=== PATIENT | male | born 1965 ===

== ENCOUNTER 2018-06-10 06:17 | Emergency (ER) | payer SELFPAY ==
[2018-06-10] MEDS ORDERED: Morphine VIAL* 4 MG/ML VIAL (1 ml vial) IV ONE ×2 (06:29→07:50)
[2018-06-10] MEDS ORDERED: Ondansetron INJ* 2 MG/ML VIAL IV ONE (06:29)
--- NOTE | 2018-06-10 06:37 | ED ---
Lower Extremity - HPI Summary HPI Summary: Pt. is a 52 y.o male who presents to the ER for a left ankle injury. Pt. states he went out to his truck this morning to get ready for work when he slipped stepping onto curb and invert left ankle. Pt. denies head injury or LOC. Past hx of HTN. Pt. denies numbness, tingling or weakness. Symptoms are mild in severity. Moving and touching left ankle makes sxs worse. Nothing makes sxs better. - History of Current Complaint Chief Complaint: EDExtremityLower Stated Complaint: L LEG INJURY Time Seen by Provider: 06/10/18 06:24 Hx Obtained From: Patient Pain Intensity: 5 - Allergies/Home Medications Allergies/Adverse Reactions: Allergies Allergy/AdvReac Type Severity Reaction Status Date / Time shellfish derived Allergy Airway Verified 06/10/18 07:04 Obstruction PMH/Surg Hx/FS Hx/Imm Hx Previously Healthy: Yes - Immunization History Date of Tetanus Vaccine: unsure Infectious Disease History: No Infectious Disease History: Denies: Traveled Outside the [place] in Last 30 Days - Family History Known Family History: Positive: Non-Contributory - Social History Occupation: Employed Full-time Lives: With Family Alcohol Use: Occasionally Substance Use Type: Reports: None Smoking Status (MU): Former Smoker Review of Systems Positive: Other - Left ankle injury Negative: Weakness, Paresthesia, Numbness All Other Systems Reviewed And Are Negative: Yes Physical Exam Triage Information Reviewed: Yes Vital Signs On Initial Exam: Initial Vitals Temp Pulse Resp BP Pulse Ox 97.3 F 74 18 132/98 99 06/10/18 06:20 06/10/18 06:20 06/10/18 06:20 06/10/18 06:20 06/10/18 06:20 Vital Signs Reviewed: Yes Appearance: Positive: Well-Appearing - Pt. lying on bed in NAD. Splint on left ankle. present. Skin: Positive: Warm, Dry Head/Face: Positive: Normal Head/Face Inspection Eyes: Positive: Normal, EOMI Neck: Positive: Supple Musculoskeletal: Positive: Other - Mild edema and ecchymosis to left lateral ankle. Good pedal pulse. No breaks in skin. No proximal knee or hip pain. Neurological: Positive: Normal, CN Intact II-III Psychiatric: Positive: Affect/Mood Appropriate - Lizette Coma Scale Best Eye Response: 4 - Spontaneous Best Motor Response: 6 - Obeys Commands Best Verbal Response: 5 - Oriented Coma Scale Total: 15 Diagnostics - Vital Signs Vital Signs Temp Pulse Resp BP Pulse Ox 06/10/18 06:20 97.3 F 74 18 132/98 99 - Laboratory Lab Statement: Any lab studies that have been ordered have been reviewed, and results considered in the medical decision making process. Lower Extremity Course/Dx - Course Course Of Treatment: Pt. presenting for likely left ankle fracture/dislocation. IV and morphine ordered. Pending xrays. X-rays show a distal comminuted fibular fracture as well as displacement of the ankle mortise, reading per myself and Dr. Jacome. Case discussed with Dr. Jacome. Ankle was splinted and crutched. Patient to call orthopedic clinic today to schedule close follow-up appointment. Advised patient he'll most likely need surgery for this injury. Prescription for Percocet prescribed for pain. FUR STRETCHER was reviewed and no red flags identified. Advised ice and elevate. Keep splint in place and use crutches. Advised to return to the ER for excessive swelling, numbness, tingling, discoloration. Patient and significant other understand and agree with plan. - Diagnoses Differential Diagnosis/HQI/PQRI: Positive: Contusion, Dislocation, Fracture ( Closed), Sprain, Strain Provider Diagnoses: Fracture dislocation of ankle Discharge - Sign-Out/Discharge Documenting (check all that apply): Patient Departure - Discharge Plan Condition: Good Disposition: HOME Prescriptions: oxyCODONE/Acetamin 5/325 MG* [Percocet 5/325 TAB*] 1 tab PO Q6H PRN #12 tab MDD 4 tablets PRN Reason: Pain Patient Education Materials: Ankle Fracture (ED), Ankle Dislocation (ED) Referrals: Mary Kate Almendarez MD [Medical Doctor] - Additional Instructions: Call the Dr. Almendarez's office this morning to schedule a close follow up appointment Keep splint in place Use crutches Ice and elevate Pain medication as directed Return to ER for increased pain, swelling, tingling/numbness, or discoloration to foot - Billing Disposition and Condition Condition: GOOD Disposition: Home
[2018-06-10 08:31] VITALS: BP 151/98
--- NOTE | 2018-06-11 13:49 | ED ---
Progress - Progress Note Progress Note: Patient's final radiology read reported as minor discrepancy however radiology report matches description of wet read by Kenneth STRICKLAND and Dr. Jacome (see note). Patient was splinted and placed on crutches. No change in treatment nor diagnosis. Patient was advised to follow-up with orthopedics which is an appropriate care plan given final radiology read. Course/Dx - Course Course Of Treatment: Pt. presenting for likely left ankle fracture/dislocation. IV and morphine ordered. Pending xrays. X-rays show a distal comminuted fibular fracture as well as displacement of the ankle mortise, reading per myself and Dr. Jacome. Case discussed with Dr. Jacome. Ankle was splinted and crutched. Patient to call orthopedic clinic today to schedule close follow-up appointment. Advised patient he'll most likely need surgery for this injury. Prescription for Percocet prescribed for pain. CUT TOBACCO BULKER was reviewed and no red flags identified. Advised ice and elevate. Keep splint in place and use crutches. Advised to return to the ER for excessive swelling, numbness, tingling, discoloration. Patient and significant other understand and agree with plan. - Diagnoses Provider Diagnoses: Fracture dislocation of ankle Discharge - Sign-Out/Discharge Documenting (check all that apply): Post-Discharge Follow Up - Discharge Plan Condition: Good Disposition: HOME Prescriptions: oxyCODONE/Acetamin 5/325 MG* [Percocet 5/325 TAB*] 1 tab PO Q6H PRN #12 tab MDD 4 tablets PRN Reason: Pain Patient Education Materials: Ankle Fracture (ED), Ankle Dislocation (ED) Referrals: Mary Kate Almendarez MD [Medical Doctor] - Additional Instructions: Call the Dr. Almendarez's office this morning to schedule a close follow up appointment Keep splint in place Use crutches Ice and elevate Pain medication as directed Return to ER for increased pain, swelling, tingling/numbness, or discoloration to foot - Billing Disposition and Condition Condition: GOOD Disposition: Home
== END 2018-06-10 08:29 | disposition home or self-care (01) ==
LOC: ED 06:17
DX: S82.892A Other fracture of left lower leg, initial encounter for closed fracture (principal); X58.XXXA Exposure to other specified factors, initial encounter; Y92.9 Unspecified place or not applicable; Z87.891 Personal history of nicotine dependence
CPT/HCPCS: 96374; 96375; 99283; J2270; J2405

== ENCOUNTER 2019-03-07 09:22 | Emergency (ER) | payer OTHER ==
--- OUTSIDE RECORDS SUMMARY | 2019-03-07 09:27 | XMS REPORT | Summary of Care ---
:1965 Author Organization [facility] Address [address] [address] Care Team Providers Name Role Phone Tavares Chavez DO Primary Care Provider Reason for Visit Reason Comments Follow Up here for follow up; concerned with BP and check; Encounter Details Date Type Department Care Team Description 01/19/2019 Office Visit [facility] Tavares Chavez DO Essential hypertension Practice [address] [facility] (Primary Dx) [address] [place] [address] [place] [address] [phone] Allergies Active Allergy Reactions Severity Noted Date Comments Environmental Respiratory Reaction 11/08/2017 Shellfish Allergy Anaphylaxis 11/08/2017 documented as of this encounter (statuses as of 01/19/2019) Medications Medication Sig Dispensed Refills Start Date End Date Status Albuterol Sulfate Take 2 Puffs by 1 Each 0 11/14/2018 Active 108 (90 Base) inhalation EVERY MCG/ACT FOUR HOURS Inhalation NEEDED (cough, AEROSOL POWDER, wheeze or BREATH ACTIVATED shortness of breath). LISINOPRIL-HCTZ Take 1 Tab by 30 Tab 0 01/12/2019 Active 10-12.5 MG Oral mouth DAILY. TabIndications: Hypertension, unspecified type ibuprofen Take 1 Tab by 120 Tab 4 06/24/2018 01/19/2019 Discontinued (MOTRIN) 800 MG mouth EVERY SIX Oral Tab HOURS NEEDED (pain). documented as of this encounter (statuses as of 01/19/2019) Active Problems Problem Noted Date Closed fracture of left ankle 2018 documented as of this encounter (statuses as of 01/19/2019) Immunizations Name Administration Dates Next Due TDAP Vaccine 11/14/2018 documented as of this encounter Social History Tobacco Use Types Packs/Day Years Used Date Never Smoker Smokeless Tobacco: Never Used Alcohol Use Drinks/Week oz/Week Comments Yes 1 Cans of beer 1.0 2 beers a night Sex Assigned at Date Recorded Not on file Job Start Date Occupation Industry Not on file Not on file Not on file Travel History Travel Start Travel End No recent travel history available. documented as of this encounter Last Filed Vital Signs Vital Sign Reading Time Taken Comments Blood Pressure 148/78 01/19/2019 3:03 PM EDT Pulse 86 01/19/2019 3:03 PM EDT Temperature - - Respiratory Rate - - Oxygen Saturation 98% 01/19/2019 3:03 PM EDT Inhaled Oxygen Concentration - - Weight 144.8 kg (319 lb 3.2 oz) 01/19/2019 3:03 PM EDT Height 188 cm (6' 2") 01/19/2019 3:03 PM EDT Body Mass Index 40.98 01/19/2019 3:03 PM EDT documented in this encounter Progress Notes Tavares Chavez, DO - 01/19/2019 3:00 PM EDT PATIENT: Sunny Liriano : 1965 DATE OF SERVICE: 01/19/2019 CHIEF COMPLAINT: Chief Complaint Patient presents with Follow Up here for follow up; concerned with BP and check; Subjective HISTORY OF PRESENT ILLNESS: Sunny Liriano is a 53-y.o. male. 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 Cast Hypertension Family History Problem Relation Age of Onset Hypertension Mother Diabetes Father Cancer No family history Arthritis No family history Heart Disease No family history Kidney Disease No family history Thyroid Disease No family history Clotting Disorder No family history Current Outpatient Medications Medication Sig Albuterol Sulfate 108 (90 Base) MCG/ACT Inhalation AEROSOL POWDER, BREATH ACTIVATED Take 2 Puffs by inhalation EVERY FOUR HOURS NEEDED (cough, wheeze or shortness of breath). ibuprofen (MOTRIN) 800 MG Oral Tab Take 1 Tab by mouth EVERY SIX HOURS NEEDED (pain). LISINOPRIL-HCTZ 10-12.5 MG Oral Tab Take 1 Tab by mouth DAILY. No current facility-administered medications for this visit. Allergies Allergen Reactions Environmental Respiratory Reaction Shellfish Allergy Anaphylaxis Social History Socioeconomic History Marital status: Single Spouse name: Not on file Number of children: Not on file Years of education: Not on file Highest education level: Not on file Occupational History Not on file Social Needs Financial resource strain: Not on file Food insecurity: Worry: Not on file Inability: Not on file Transportation needs: Medical: Not on file Non-medical: Not on file Tobacco Use Smoking status: Never Smoker Smokeless tobacco: Never Used Substance and Sexual Activity Alcohol use: Yes Alcohol/week: 1.0 standard drinks Types: 1 Cans of beer per week Comment: 2 beers a night Drug use: No Sexual activity: Yes Partners: Female control/protection: Surgical Lifestyle Physical activity: Days per week: Not on file Minutes per session: Not on file Stress: Not on file Relationships Social connections: Talks on phone: Not on file Gets together: Not on file Attends tenriism service: Not on file Active member of club or organization: Not on file Attends meetings of clubs or organizations: Not on file Relationship status: Not on file Intimate partner violence: Fear of current or ex partner: Not on file Emotionally abused: Not on file Physically abused: Not on file Forced sexual activity: Not on file Other Topics Concern Not on file Social History Narrative 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 REVIEW OF SYSTEMS: Review of Systems Constitutional: Negative for fever. Respiratory: Negative for cough. Gastrointestinal: Negative for abdominal pain. Neurological: Negative for dizziness. Objective PHYSICAL EXAM: VITALS: BP 148/78 (BP Location: Left arm, Patient Position: Sitting) | Pulse 86 | Ht 6' 2" (1.88 m) | Wt 319 lb 3.2 oz (144.8 kg) | SpO2 98% | BMI 40.98 kg/m Body mass index is 40.98 kg/m. Physical Exam Constitutional: He appears well-developed and well-nourished. No distress. HENT: Head: Normocephalic and atraumatic. Mouth/Throat: Oropharynx is clear and moist. Cardiovascular: Normal rate and regular rhythm. Pulmonary/Chest: Effort normal and breath sounds normal. Skin: He is not diaphoretic. ASSESSMENT / IMPRESSION: ICD-9-CM ICD-10-CM 1. 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 The patient will establish with Payal Hanna in 6 months. Author: Tavares Chavez DO 01/19/2019 15:25 documented in this encounter Plan of Treatment Date Type Specialty Care Team Description 02/03/2019 Nurse/Clinical Internal Medicine Support 02/03/2019 Lab Internal Medicine 02/19/2019 Hospital Encounter Anesthesiology Mitesh Cast Short Procedure MD Jacki [address] [place] [place] [address] 02/19/2019 Surgery Mitesh Cast REMOVAL OF HARDWARE MD Jacki FROM LEFT ANKLE [address] [place] [address] 03/03/2019 Office Visit Orthopedics Mitesh Cast MD [address] [place] [address] Health Maintenance Due Date Last Done Comments ZOSTER IMMUNIZATION SERIES (1 2016 of 2) LIPID DISORDER SCREENING 11/29/2018 11/29/2017 INFLUENZA VACCINE (#1) 2019 DIABETES SCREENING 06/12/2019 06/12/2018, 12/27/2017, 11/29/2017 COLONOSCOPY SCREENING 11/15/2019 Postponed from 2016 (Patient refused) DEPRESSION SCREENING 11/15/2019 11/14/2018 HIV SCREENING 01/20/2020 Postponed from 1981 (Patient refused) HPV IMMUNIZATION SERIES Aged Out No longer eligible based on patient's age to complete this topic MENINGOCOCCAL VACCINE IMM Aged Out No longer eligible based on patient's age to complete this topic PNEUMOCOCCAL 0-64 YRS Aged Out No longer eligible based on patient's age to complete this topic documented as of this encounter Goals Goal Patient Goal Associated Recent Patient-Stated? Author Type Problems Progress Blood Pressure Blood Pressure 148/78 No Tavares Chavez < 140/90 (01/19/2019 DO Danae 3:03 PM EDT) Note: This is an individualized treatment (blood pressure) goal for Sunny Liriano: Displayed above (on the left) is your goal for blood pressure control. Your most recent blood pressure is also shown above, on the right. You should try to achieve blood pressures that are lower than your goal listed above (on the left). Weight loss vs. 18 mo Lifestyle 2.4 (01/19/2019 3:03 PM EDT) Tavares De DO max (lbs) >= 10 Note: This is an individualized lifestyle goal for Sunny Liriano: Your body mass index (BMI) is more than 30. You should lose weight. A reasonable starting goal is to lose 10 pounds. Displayed above is how many pounds you have lost thus far towards your 10 pound weight loss goal. Take all prescribed medications as directed Self-management Tavares De DO Note: This is an individualized self-management goal for Sunny Liriano: Please take all prescribed medications as directed. 1. Do not skip doses. If you cannot afford your medications, talk with your doctor. 2. Use a pill reminder system such as a pill box if needed. Your pharmacist can help you with this. 3. Contact your Pharmacy 5 days before your medication runs out. If you cannot take your medications for any reasons, talk with your doctor. 4. Please bring all of your medication bottles and inhalers (or a list of all your medications/inhalers) with you to every visit. Potential barriers to meeting all of your care plan goals will continue to be addressed on an ongoing basis. documented as of this encounter Implants Implanted Type Area Children'S Nursery Assistant Device Shelf Model / Identifier Expiration Serial / Date Lot Plate, 241.401 p 06/[address] - [id number] Left: [employer] 241.401 / Implanted: Qty: 1 on 06/16/2018 by Mitesh Cast MD at [facility] ([facility]) / [id number] [facility] Ankle - [id number] Left: [employer] 02/17/2023 [id number] / Implanted: Qty: 1 on 06/16/2018 by Mitesh Cast MD at [facility] Ankle / [id number] Screw, 204.818 Ss 3.5 Self-Tap - [id number] Left: [employer] 204.818 / Implanted: Qty: 1 on 06/16/2018 by Mitesh Cast MD at [facility] ([facility]) / Screw, 204.818 Ss 3.5 Self-Tap - [id number] Left: [employer] 204.818 / Implanted: Qty: 1 on 06/16/2018 by Mitesh Cast MD at [facility] ([facility]) / Screw, 204.818 Ss 3.5 Self-Tap - [id number] Left: [employer] 204.818 / Implanted: Qty: 1 on 06/16/2018 by Mitesh Cast MD at [facility] ([facility]) / 3.5mm Variable Angle Locking Screw/Slf-Tpng/Strdrv/65mm - [id number] Left: [employer] 02127.165 / Implanted: Qty: 1 on 06/16/2018 by Mitesh Cast MD at [facility] ([facility]) / 3.5mm Va Locking Screw St Stardrive 54mm - [id number] Left: [employer]. 02127.154 / Implanted: Qty: 1 on 06/16/2018 by Mitesh Cast MD at [facility] ([facility]) / 3.5mm Va Locking Screw St Stardrive 56mm - [id number] Left: [employer] 127.156 / Implanted: Qty: 1 on 06/16/2018 by Mitesh Cast MD at [facility] ([facility]) / documented as of this encounter Results Not on filedocumented in this encounter Visit Diagnoses Diagnosis Essential hypertension - Primary Unspecified essential hypertension documented in this encounter documented as of this encounter
--- OUTSIDE RECORDS SUMMARY | 2019-03-07 09:27 | XMS REPORT | Summary of Care ---
:1965 Author Organization [facility] Address [address] [facility] [place] [address] Care Team Providers Name Role Phone Misael Chavezed Danae Primary Care Provider Reason for Visit Reason Comments Surgical Followup 06/16/18 ORIF left ankle fracture. 02/19/19 MISSY left ankle including broken screw. Patient thinks he has increased ROM since MISSY. Suture / Staple Removal Encounter Details Date Type Department Care Team Description 03/03/2019 Office Visit [facility] - Mitesh Cast Closed fracture of Vicente Echeverria MD left ankle with [address] [facility] routine healing, [address] [place] [address] [place] [address] (Primary Dx) [phone] Allergies Active Allergy Reactions Severity Noted Date Comments Environmental Respiratory Reaction 11/08/2017 Shellfish Allergy Anaphylaxis 11/08/2017 documented as of this encounter (statuses as of 03/03/2019) Medications Medication Sig Dispensed Refills Start Date End Date Status Albuterol Sulfate 108 Take 2 Puffs by 1 Each 0 11/14/2018 Active (90 Base) MCG/ACT inhalation EVERY Inhalation AEROSOL FOUR HOURS POWDER, BREATH NEEDED (cough, ACTIVATED wheeze or shortness of breath). LISINOPRIL-HCTZ Take 1 Tab by mouth 30 Tab 0 01/12/2019 Active 10-12.5 MG Oral DAILY. TabIndications: Hypertension, unspecified type amLodipine (NORVASC) Take 1 Tab by mouth 90 Tab 1 02/03/2019 Active 2.5 MG Oral Tab DAILY. OXYcodone-acetaminoph Take 1 Tab by mouth 28 Tab 0 02/19/2019 Active en (PERCOCET) 5-325 EVERY FOUR HOURS MG Oral Tab NEEDED (pain). Max Daily Amount: 6 Tabs. documented as of this encounter (statuses as of 03/03/2019) Active Problems Problem Noted Date Closed fracture of left ankle 2018 documented as of this encounter (statuses as of 03/03/2019) Immunizations Name Administration Dates Next Due TDAP [...] Sign Reading Time Taken Comments Blood Pressure - - Pulse - - Temperature - - Respiratory Rate - - Oxygen Saturation - - Inhaled Oxygen Concentration - - Weight 143.8 kg (317 lb) 03/03/2019 9:10 AM EDT Height 188 cm (6' 2") 03/03/2019 9:10 AM EDT Body Mass Index 40.7 03/03/2019 9:10 AM EDT documented in this encounter Progress Notes Mitesh Cast MD - 03/03/2019 9:00 AM EDT PATIENT: Sunny Liriano : 1965 DATE OF SERVICE: 03/03/2019 Chief Complaint Patient presents with Surgical Followup 06/16/18 ORIF left ankle fracture. 02/19/19 MISSY left ankle including broken screw. Patient thinks hehas increased ROM since MISSY. Suture / Staple Removal Doing well Incisions healing well, no sign of infection. Sutures removed and steris applied. Anle well-aligned,stable, good ROM and gait with and without cane, I reviewed xrays of Left ankle: good reduction maintained, HARDWARE out (except suture buttons) and fibular fracture well-aligned and healing. Cane 2 more weeks, no impact loading. Follow-up visit 04/21 with with same xray views as today. Author: Mitesh Cast MD 03/03/2019 10:05 documented in this encounter Plan of Treatment Date Type Specialty Care Team Description 04/21/2019 Office Visit Orthopedics Mitesh Cast MD [address] [place] [address] [phone] 07/23/2019 Office Visit Family Practice Payal Pacheco, JOSE [address] [id number] [phone] Health Maintenance Due Date Last Done Comments ZOSTER IMMUNIZATION SERIES 2016 (1 of 2) INFLUENZA VACCINE (#1) 2019 COLONOSCOPY SCREENING 11/15/2019 Postponed from 2016 (Patient refused) DEPRESSION SCREENING 11/15/2019 11/14/2018 HIV SCREENING 01/20/2020 Postponed from 1981 (Patient refused) DIABETES SCREENING 02/04/2020 02/03/2019, 06/12/2018, 12/27/2017, Additional history exists LIPID DISORDER SCREENING 02/04/2020 02/03/2019, 11/29/2017 HPV IMMUNIZATION SERIES Aged Out No longer [...] Type Problems Progress Blood Pressure Blood Pressure 119/74 No Tavares Chavez < 140/90 (02/19/2019 J, DO 6:35 PM EDT) Note: This is an individualized treatment (blood pressure) goal for Sunny Liriano: Displayed above (on the left) is your goal for blood pressure control. Your most recent blood pressure is also shown above, on the right. You should try to achieve blood pressures that are lower than your goal listed above (on the left). Weight loss vs. 18 mo Lifestyle 4.6 (03/03/2019 9:10 AM EDT) No Tavares Chavez J, DO max (lbs) >= 10 Note: This is an individualized lifestyle goal for Sunny Liriano: Your body mass index (BMI) is more than 30. You should lose weight. A reasonable starting goal is to lose 10 pounds. Displayed above is how many pounds you have lost thus far towards your 10 pound weight loss goal. Take all prescribed medications as directed Self-management No Tavares Chavez, DO Note: This is an individualized self-management [...] of this encounter Implants Implanted Type Area Meter Supervisor Device Shelf Model / Identifier Expiration Date Serial / Lot [employer] Ankle - [id number] Left: [employer] 02/17/2023 [id number] / Implanted: Qty: 1 on 06/16/2018 by Mitesh Cast MD at [facility] Ankle / [id number] documented as of this encounter Results Not on filedocumented in this encounter Visit Diagnoses Diagnosis Closed fracture of left ankle with routine healing, subsequent encounter - Primary documented in this encounter documented as of this encounter
--- OUTSIDE RECORDS SUMMARY | 2019-03-07 09:27 | XMS REPORT | Summary of Care ---
:1965 Author Organization [facility] Address [address] [address] Care Team Providers Name Role Phone Tavares Chavez Primary Care Provider Reason for Visit Auth/Cert Status Reason Specialty Diagnoses / Procedures Referred By Contact Referred To Contact Diagnoses Other fracture of left lower leg, subsequent encounter for closed fracture with routine healing Procedures PA KNEE SCOPE,MED/LAT MENISECTOMY PA KNEE SCOPE,MED OR LAT MENIS REPAIR Encounter Details Date Type Department Care Team Description 02/19/2019 Hospital Encounter [facility] Momo Kennedy Short Procedure [address] [place] [address] [address] [phone] [address] [address] Allergies Active Allergy Reactions Severity Noted Date Comments Environmental Respiratory Reaction 11/08/2017 Shellfish Allergy Anaphylaxis 11/08/2017 documented as of this encounter (statuses as of 02/20/2019) Medications Medication Sig Dispensed Refills Start Date End Date Status Albuterol Take 2 Puffs by 1 Each 0 11/14/2018 Active Sulfate 108 (90 inhalation Base) MCG/ACT EVERY FOUR Inhalation HOURS NEEDED AEROSOL POWDER, (cough, wheeze BREATH ACTIVATED or shortness of breath). LISINOPRIL-HCTZ Take 1 Tab by 30 Tab 0 01/12/2019 Active 10-12.5 MG Oral mouth DAILY. TabIndications: Hypertension, unspecified type amLodipine Take 1 Tab by 90 Tab 1 02/03/2019 Active (NORVASC) 2.5 MG mouth DAILY. Oral Tab OXYcodone-acetam Take 1 Tab by 28 Tab 0 02/19/2019 Active inophen mouth EVERY (PERCOCET) 5-325 FOUR HOURS MG Oral Tab NEEDED (pain). Max Daily Amount: 6 Tabs. OXYcodone-acetam Take 1 Tab by 28 Tab 0 02/19/2019 Discontinued inophen mouth EVERY 9 (Reorder) (PERCOCET) 5-325 FOUR HOURS MG Oral Tab NEEDED (pain). Max Daily Amount: 6 Tabs. documented as of this encounter (statuses as of 02/20/2019) Active Problems Problem Noted Date Closed fracture of left ankle 2018 documented as of this encounter (statuses as of 02/20/2019) Immunizations Name Administration Dates Next Due TDAP [...] Sign Reading Time Taken Comments Blood Pressure 119/74 02/19/2019 6:35 PM EDT Pulse 100 02/19/2019 6:35 PM EDT Temperature 37.2 02/19/2019 6:35 PM EDT C (98.9 F) Respiratory Rate 18 02/19/2019 6:35 PM EDT Oxygen Saturation 99% 02/19/2019 6:35 PM EDT Inhaled Oxygen Concentration - - Weight 144 kg (317 lb 6.4 oz) 02/19/2019 1:07 PM EDT Height 188 cm (6' 2") 02/19/2019 1:07 PM EDT Body Mass Index 40.75 02/19/2019 1:07 PM EDT documented in this encounter Discharge Instructions Connie Lopez RN - 02/19/2019Provider's Instructions Reason for Admission or Diagnosis: retained hardware to left ankle Procedures this Admission: removal of hardware to left ankle Activity/Restrictions: weight bearing as tolerated with walker or crutches in 5 days Skin/Wound Care: Keep dressing clean, dry, and intact for next 5 days then may remove and bathe. Donot remove dressing. Any questions or concerns please call MOMO KENNEDY MD ,MD office at [phone]. Discharge Diet: Resume prior to admission diet Follow up: 2-3 weeks with MOMO KENNEDY MD ,MD in [place] Discharge Provider: SOHA Iqbal Attending: OMMO KENNEDY MD, MD Time: 17:07 02/19/2019 Nurse's Instructions Problems to report to your Physician: Excessive pain or discomfort Fever > 100.5 degrees Difficulty breathing Increase or smell in wound drainage Questions or concerns after discharge During office hours call Surgeons office For after office hours or weekends call [facility] Work[facility] and ask for Orthopedic surgeon industrial relations worker *Please Return Patient Satisfaction Survey* AttachmentsThe following attachments cannot be sent through Care Everywhere.GENERAL ANESTHESIA (DISCHARGE CARE) (KHMER)documented in this encounter Plan of Treatment Date Type Specialty Care Team Description 03/03/2019 Office Visit Orthopedics Momo Kennedy MD [address] [address] [phone] 07/23/2019 Office Visit Family Practice Payal Pacheco NP [address] [place] [address] [phone] Health Maintenance Due Date Last Done Comments [...] 119/74 No Tavares Chavez < 140/90 (02/19/2019 DO Danae 6:35 PM EDT) Note: This is an individualized treatment (blood pressure) goal for Sunny Liriano: Displayed above (on the left) is your goal for blood pressure control. Your most recent blood pressure is also shown above, on the right. You should try to achieve blood pressures that are lower than your goal listed above (on the left). Weight loss vs. 18 mo Lifestyle 4.2 (02/19/2019 1:07 PM EDT) No Tavares Chavez DO max (lbs) >= 10 Note: This [...] of this encounter Implants Implanted Type Area Soundscriber Mechanic Device Shelf Model / Identifier Expiration Date Serial / [facility] [id number] Left: [employer] 02/17/2023 [id number] / Implanted: Qty: 1 on 06/16/2018 by Momo Kennedy MD at [facility] Ankle / [id number] Explanted Type Area Soundscriber Mechanic Device Shelf Model / Identifier Expiration Serial / Date Lot Plate, 241.401 Lcp 06/05 Tub [facility] - [id number] Left: [employer] 241.401 / Implanted: Qty: 1 on 06/16/2018 by Momo Kennedy MD at [facility] Ankle ([place]) / Explanted: Qty: 1 on 02/19/2019 by Momo Kennedy MD at [facility] [id number] Screw, 204.818 Ss 3.5 Self-Tap - [id number] Left: [employer] 204.818 / Implanted: Qty: 1 on 06/16/2018 by Momo Kennedy MD at [facility] Ankle ([facility]) / Explanted: Qty: 1 on 02/19/2019 by Momo Kennedy MD at [facility] Screw, 204.818 Ss 3.5 Self-Tap - [id number] Left: [employer] 204.818 / Implanted: Qty: 1 on 06/16/2018 by Momo Kennedy MD at [facility] Ankle ([facility]) / Explanted: Qty: 1 on 02/19/2019 by Momo Kennedy MD at [facility] Screw, 204.818 Ss 3.5 Self-Tap - [id number] Left: [employer] 204.818 / Implanted: Qty: 1 on 06/16/2018 by Momo Kennedy MD at [facility] Ankle ([facility]) / Explanted: Qty: 1 on 02/19/2019 by Momo Kennedy MD at [facility] 3.5mm Variable Angle Locking Screw/Slf-Tpng/Strdrv/65mm - [id number] Left: [employer] 127.165 / Implanted: Qty: 1 on 06/16/2018 by Momo Kennedy MD at [facility] Ankle ([facility]) / Explanted: Qty: 1 on 02/19/2019 by Momo Kennedy MD at [facility] 3.5mm Va Locking Screw St [employer]rive 54mm - [id number] Left: [employer] 127.154 / Implanted: Qty: 1 on 06/16/2018 by Momo Kennedy MD at [facility] Ankle ([facility]) / Explanted: Qty: 1 on 02/19/2019 by Momo Kennedy MD at [facility] 3.5mm Va Locking Screw St [employer]ard[employer] 56mm - [id number] Left: [employer] 02.127.156 / Implanted: Qty: 1 on 06/16/2018 by Momo Kennedy MD at [facility] Ankle ([place]) / Explanted: Qty: 1 on 02/19/2019 by Momo Kennedy MD at [facility] documented as of this encounter Procedures Procedure Name Priority Date/Time Associated Comments Diagnosis XR ANKLE 2 VIEWS Routine 02/19/2019 5:37 Results for this LEFT PM EDT procedure are in the results section. 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 BROKEN SCREW REMOVAL KIT. SMOOTH STEINMANN PINS. RED DOT C-ARM. SKYTRON 3003 IMPULSE RADIOLUCENT. SUPINE. SIGN PERMIT 02/19/2019 12:00 PM EDT documented in this encounter Results XR ANKLE 2 VIEWS LEFT (02/19/2019 5:37 PM EDT) Specimen Impressions Performed At General supervision is provided in support of furnishing fluoroscopic imaging guidance to the clinical service in support of an interventional procedure. Please reference the operating provider's procedure note. Signed by Alexandre Ortega MD on 02/19/2019 8:42 PM Narrative Performed At Procedure(s): XR ANKLE 2 VIEWS LEFT Date of service: 02/19/2019 2:23 PM Provided clinical information: 53 years, Male, "Removal of Hardware Left Ankle" Procedure Note Interface, Rad Results - 02/19/2019 8:46 PM EDT Procedure(s): XR ANKLE 2 VIEWS LEFT Date of service: 02/19/2019 2:23 PM Provided clinical information: 53 years, Male, "Removal of Hardware Left Ankle" IMPRESSION General supervision is provided in support of furnishing fluoroscopic imaging guidance to the clinical service in support of an interventional procedure. Please reference the operating provider's procedure note. Signed by Alexandre Ortega MD on 02/19/2019 8:42 PM documented in this encounter Administered Medications Medication Order MAR Action Action Date Dose Rate Site FentaNYL (PF) (SUBLIMAZE) injection (PF) 25 mcg 25 mcg, Intravenous Push, PRU Q5MIN PRN, Starting [facility] 02/19/19 at 1656, Until [facility] 02/19/19 at 2054, Mild Pain (pain scale 1-3) - IV - 1st line - if immediate effect required or patient cannot tolerate PO, 4 Recovery FentaNYL (PF) (SUBLIMAZE) injection (PF) 50 mcg 50 mcg, Intravenous Push, PRU Q5MIN PRN, Starting [facility] 02/19/19 at 1656, Until [facility] 02/19/19 at 2110, Moderate Pain (pain scale 4-6) - IV - 1st line - if immediate effect required or patient cannot tolerate PO, Severe Pain (pain scale 7-10) - IV - 1st line - if immediate effect required or patient cannot tolerate PO, 4 Recovery haloperidol (HALDOL) injection 0.65 mg 0.65 mg, Intravenous Push, PRU X1 PRN, 1 dose, Starting [facility] 02/19/19 at 165, Until [facility] 02/19/19 at 2110, Nausea/Vomiting - IV - 3rd line - if immediate effect required or patient cannot tolerate PO and no relief 1 hour after administration of 2nd line agent, 4 Recovery HYDROmorphone (DILAUDID) syringe 0.3 mg 0.3 mg, Intravenous Push, PRU Q5MIN PRN, Starting [facility] 02/19/19 at 1656, Until [facility] 02/19/19 at 2054, Mild Pain (pain scale 1-3) IV - 2nd line - if immediate effect required or cannot tolerate PO & still had mild pain 4 hrs after admin of 1st line agent or patient did not tolerate 1st line agent, 4 Recovery HYDROmorphone (DILAUDID) syringe 0.5 mg Given 02/19/2019 5:03 PM EDT 0.5 mg 0.5 mg, Intravenous Push, PRU Q5MIN PRN, 2 doses, Starting [facility] 02/19/19 at 1656, Until [facility] 02/19/19 at 2110, Moderate Pain (pain scale 4-6)IV 2nd line- if immediate effect required or cannot tolerate PO & still had moderate pain 2 hrs after admin of 1st line agent or did not tolerate 1st line agent, Severe Pain (pain scale 7-10)IV 2nd line - if immediate effect required or cannot tolerate PO & no still has severe pain 1 hr after admin of 1st line agent or did not tolerate 1st line agent, 4 Recovery meperidine (DEMEROL) syringe 25 mg 25 mg, Intravenous Push, PRU Q5MIN PRN, 2 doses, Starting [facility] 02/19/19 at 1656, Until [facility] 02/19/19 at 2111, Shivering/Chills/Rigors, 4 Recovery midazolam (VERSED) injection 0.5 mg 0.5 mg, Intravenous Push, PRU Q5MIN PRN, Starting [facility] 02/19/19 at 1656, Until [facility] 02/19/19 at 2055, Anxiety - IV - 1st line - if immediate effect required or patient cannot tolerate PO, 4 Recovery normal saline IV Intravenous, at 100 mL/hr, PRU CONTINUOUS, Starting [facility] 02/19/19 at 1700, Until [facility] 02/19/19 at 211, 4 Recovery ondansetron (ZOFRAN) injection 4 mg 4 mg, Intravenous Push, PRU X1 PRN, 1 dose, Starting [facility] 02/19/19 at 1656, Until [facility] 02/19/19 at 2111, Nausea/Vomiting - IV - 1st line - If immediate effect required or patient cannot tolerate PO, 4 Recovery OXYcodone (OXY-IR,OXY-FAST) immediate release Given 02/19/2019 5:41 PM EDT 10 mg tablet 10 mg 10 mg, Oral, X1 BEFORE DISCHARGE, 1 dose, First dose on [facility] 02/19/19 at 1700, 4 Recovery prochlorperazine (COMPAZINE) injection 2.5 mg 2.5 mg, Intravenous Push, PRU PRN, 2 doses, Starting [facility] 02/19/19 at 1656, Until [facility] 02/19/19 at 2110, Nausea/Vomiting - IV - 2nd line - if immediate effect required or patient cannot tolerate PO and no relief 1 hours after administration of 1st line agent, 4 Recovery documented in this encounter documented as of this encounter
[2019-03-07 09:33] VITALS: BP 129/83
--- NOTE | 2019-03-07 09:50 | UC ---
Lower Extremity/Ankle HPI - HPI Summary HPI Summary: CHIEF COMPLAINT and HPI: This is a 53-year-old male sustained a serious injury to his left leg in June 2018. various hardware was placed to repair this injury. 4 days ago, the left leg incision had sutures removed. Since that time , the patient complains of a foul smell to this incision site and an opening of the incision. He denies fever or other signs or symptoms consistent with a cellulitis. Description of Pain:a stinging pain Location:, left lower extremity above the ankle, lateral aspect. approximately 8 cm incision Radiation:. No radiation of pain VITAL SIGNS & SaO2 REVIEWED. Within normal limits unless noted here. 129/83;. Patient is on lisinopril. NURSES NOTE REVIEWED. "left lower leg fracture -had surgery- hardware removed recently , stiches removed this past Saturday by dr west possible infection of wound" - History of Current Complaint Chief Complaint: UCWounds Stated Complaint: WOUND INFECTION Time Seen by Provider: 03/07/19 09:35 Hx Obtained From: Patient Pain Intensity: 5 - Allergies/Home Medications Allergies/Adverse Reactions: Allergies Allergy/AdvReac Type Severity Reaction Status Date / Time shellfish derived Allergy Airway Verified 03/07/19 09:33 Obstruction Home Medications: Home Medications Lisinopril/Hydrochlorothiazide [Lisinopril-Hctz 10-12.5 mg Tab] 1 each PO DAILY WITH MEAL 03/07/19 [History Confirmed 03/07/19] PMH/Surg Hx/FS Hx/Imm Hx - Additional Past Medical History Additional PMH: PAST MEDICAL HISTORY- CHRONIC and RECURRENT HEALTH PROBLEM LIST REVIEWED. Information relevant to present complaint: noncontributory VISIT HISTORY REVIEWED: MEDICATIONS & ALLERGIES REVIEWED.. No antibiotic allergies HYPERTENSION STATUS:. History of hypertension. Patient is taking lisinopril. 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 Previously Healthy: Yes - Surgical History Surgical History: Yes Surgery Procedure, Year, and Place: left leg - Family History Known Family History: Positive: Non-Contributory - Social History Alcohol Use: Daily Substance Use Type: None Smoking Status (MU): Never Smoked Tobacco Review of Systems All Other Systems Reviewed And Are Negative: Yes Respiratory: Positive: Negative Cardiovascular: Positive: Negative Gastrointestinal: Positive: Negative Genitourinary: Positive: Negative Musculoskeletal: Positive: Edema - . Left lower extremity Physical Exam - Summary Physical Exam Summary: Appearance: The patient is well-appearing, is in no pain or distress, and is well-nourished. Eyes: Conjunctiva are clear. Pupils are equal and reactive to light and accommodation. Extra ocular muscle movement is intact. ENT: The hearing is grossly normal, the pharynx is normal, and the TMs are normal. There is no muffled or hoarse voice. No stridor. Neck: The neck is supple and there is no lymphadenopathy. Respiratory: The chest is non-tender to palpation and without crepitus. The lungs are clear, there are normal breath sounds, and there is no respiratory distress. No wheezes, rales or rhonchi. Cardiovascular: Heart sounds reveal a regular rate and rhythm. There are no clicks, rubs or murmurs. There are no carotid bruits or thrills. Circulation is grossly intact. Abdomen: The abdomen is soft and nontender. There is no organomegaly. Bowel sounds are present and within normal limits. No point tenderness at McBurneys point. No CVA tenderness. Musculoskeletal: Strength is intact. The patient moves all extremities. Examination of the left lower extremity: The area of the left ankle is mildly swollen. There is a macerated area on the lateral aspect surrounding a 8 cm incision site. The skin around the incision site is mildly macerated. 6 cm of the wound distally is open approximately 0.75 cm. There is no surrounding erythema or evidence of cellulitis. Neurological: The patient is alert. Motor and sensory are examination grossly intact. Speech is normal. Psychological: The patient displays age appropriate behavior, and is conversant. GCS=15. Skin: Negative for rashes. Triage Information Reviewed: Yes Vital Signs: Initial Vital Signs Temp 98.1 F 03/07/19 09:28 Pulse 78 03/07/19 09:28 Resp 18 03/07/19 09:28 BP 129/83 03/07/19 09:28 Pulse Ox 100 03/07/19 09:28 Lower Extremity Course/Dx - Course Course Of Treatment: This is a 53-year-old male sustained a serious injury to his left leg in June 2018. various hardware was placed to repair this injury. 4 days ago, the left leg incision had sutures removed. Since that time, the patient complains of a foul smell to this incision site and an opening of the incision. He denies fever or other signs or symptoms consistent with a cellulitis. Examination of the left lower extremity: The area of the left ankle is swollen. There is a macerated area on the lateral aspect surrounding a 8 cm incision site. The skin around the incision site is mildly macerated. 6 cm of the wound. Distally is open approximately 0.75 cm. There is no surrounding erythema or evidence of cellulitis. I explained to the patient that the area did not appear to be infected, but that the wound was open. He understands to expose this area of macerated skin to the air and to use antibiotic ointment on the wound. He will keep it exposed to the air except when he is traveling about at which point he will cover the area with gauze and an Osiel wrap. I explained that it may take a number of weeks for this to fully heal and that as prophylaxis, he will be on 5 days of Keflex. the patient will clean the wound morning and night and noticed recheck if there is any sign of infection. - Differential Dx/Diagnosis Differential Diagnosis/HQI/PQRI: Cellulitis, Osteomyelitis Provider Diagnosis: Wound dehiscence Discharge ED - Sign-Out/Discharge Documenting (check all that apply): Patient Departure All imaging exams completed and their final reports reviewed: No Studies - Discharge Plan Condition: Stable Disposition: HOME Prescriptions: Cephalexin CAP* [Keflex 500 CAP*] 500 mg PO TID #15 cap MDD 3 Patient Education Materials: Cellulitis (DC) Referrals: No Primary Care Phys,NOPCP [Primary Care Provider] - Additional Instructions: WE DISCUSSED: PLEASE SEEK CARE AT THE EMERGENCY DEPARTMENT IF SYMPTOMS WORSEN OR IF NEW SYMPTOMS DEVELOP. FOLLOW UP WITH YOUR PRIMARY CARE PHYSICIAN IF CONDITION CONTINUES BEYOND 3 DAYS WITHOUT IMPROVEMENT. YOUR DIAGNOSIS IS: open wound from previous operation; sensitive skin around the wound. You do NOT have a skin infection at this time. YOUR PRESCRIPTION RECOMMENDATION IS: Keflex, 3 times a day for 5 days OTHER INSTRUCTIONS: Warm moist heat; clean morning and night; use antibiotic ointment; expose to air; recheck at any time for increased pain, redness or new drainage. Hypertension Discharge Instructions: Your blood pressure reading today was 129/83 , indicating HYPERTENSION. You are taking medication for this. Follow-up with your primary care provider within 4 weeks for blood pressure check and appropriate recommendations and treatment, as needed. FOR PAIN AND/OR SLEEP: For pain: Ibuprofen (Motrin and other brand names) 400-600mg PLUS acetaminophen (Tylenol and other brand names) 500mg - 1000mg every 8 hours. - Billing Disposition and Condition Condition: STABLE Disposition: Home
== END 2019-03-07 10:25 | disposition home or self-care (01) ==
LOC: UCEAST 09:22
DX: T81.33XA Disruption of traumatic injury wound repair, initial encounter (principal); I10 Essential (primary) hypertension; Z91.013 Allergy to seafood; Z79.899 Other long term (current) drug therapy; Y83.8 Other surgical procedures as the cause of abnormal reaction of the patient, or of later complication, without mention of misadventure at the time of the procedure; Y92.9 Unspecified place or not applicable
CPT/HCPCS: 99212; G0463